=== PATIENT | male | born 1950 | race Caucasian/White ===

== ENCOUNTER → 2016-10-02 | Outpatient (CLI) | payer BC ==
--- NOTE | 2016-10-02 10:32 | DX ---
Chest, PA and lateral HISTORY: Dyspnea x2 months COMPARISON: None FINDINGS: There is cardiomegaly with a prominent left ventricular contour suggesting left ventricular enlargement. The pulmonary vascularity is normal. There is no pulmonary edema or pleural fluid. Ther e is mild tortuosity of the descending thoracic aorta. There is no evidence for pneumonia, mass or ad enopathy. There is an old mild T8 compression deformity. There is degenerative spurring scattered thr oughout the mid thoracic spine. IMPRESSION: Cardiomegaly with a prominent left ventricle. Is this patient hypertensive? Echocardiogra phy may be helpful. Results called to Dr. Silvio Benito.
== END ==
LOC: BMCIMAGING 10:07
PROVIDERS: ATTEND Internal Medicine
DX: R06.09 Other forms of dyspnea (principal); I51.7 Cardiomegaly

== ENCOUNTER 2017-08-13 14:41 | Emergency (ER) | payer BC ==
[2017-08-13 14:53] VITALS: RESP 18
--- NOTE | 2017-08-13 15:28 | EDPHY ---
HPI/HX/ROS/PE/MDM - Data Points Imaging: Discussed imaging studies w/ on call Radiologist, I viewed and interpreted images myself Narrative: CHIEF COMPLAINT: HISTORY OF PRESENT ILLNESS: The patient is a 66 y/o male arriving via EMS in a c-collar after striking his face after tripping while intoxicated this afternoon. He describes walking home on the sidewalk when he tripped and struck the right side of his face. He caught part of his fall with both hands. He denies any preceding symptoms including lightheadedness, chest pain, or shortness of breath. He did not lose consciousness and denies weakness, paresthesias, midline spinal pain, vomiting, vision changes, pleuritic pain, difficulty walking, headache, dental or jaw trama, or any other complaints. No anticoagulants. No fever, chills, chest pain, shortness of breath, palpitations, vomiting, diarrhea, urinary complaints, headache, lightheadedness. REVIEW OF SYSTEMS: Aside from elements discussed in the HPI, a comprehensive 10-point review of systems was reviewed and is negative. PAST MEDICAL HISTORY: Hypertension. Vaccinations up-to-date. SOCIAL HISTORY: Drinks alcohol daily. Employed. Lives in [place]. VITAL SIGNS: Reviewed by me GENERAL: Well-developed, well-nourished, resting comfortably in no respiratory distress. HEENT: Abrasion right forehead, abrasion above right lip, superficial laceration and abrasion right nares, swelling and abrasion over right cheek. Eyes: No icterus, no injection. Nystagmus with extraocular movements. Mouth: moist mucous membranes. Normal occlusion, edema and laceration to right lower lip with intraoral abrasions. Small laceration upper right lip at corner of mouth. Neck: C-collar in place, no tenderness. LUNGS: Clear to auscultation bilaterally, no wheezes, rhonchi or rales. CARDIAC: Regular rate and rhythm, no rubs, murmurs or gallops. ABDOMEN: Soft, nontender, nondistended, bowel sounds normal. BACK: No CVA tenderness. No C/T/L/S tenderness. EXTREMITIES: Abrasions to right hand, left thumb, and right knee. Trace edema bilateral legs. Range of motion is normal throughout. NEURO: Alert and oriented, grossly nonfocal. Movement in all extremities. SKIN: Warm and dry, no rash. PSYCHIATRIC: Normal mentation, no agitation. Portions of this note were transcribed by a biomedical electronics technician. I personally performed a history, physical exam, medical decision making, and confirmed accuracy of information the transcribed note. (Nia Brady) ED Course: This is a 66 y/o male with a history of alcohol abuse who presents with right facial injuries secondary to a trip and fall while intoxicated this afternoon. There is no evidence by history of preceding medical cause for fall aside from intoxication. He has superficial abrasion and laceration to the right side of his face as well as minor abrasions to both hands. His neuro exam is normal and there is no C/T/L/S tenderness on exam. Plan for head, neck, and face CTs. Breath alcohol is 266. CTs are all negative per radiology. Laceration will be repaired by LYLE Renner. Patient's cervical spine was removed following the CT scan which was negative. Patient continues to have no tenderness on examination. No fractures or other acute findings on the CT scan of his head, cervical spine, maxillofacial bones. Wounds were cared for and laceration was repaired. Patient was ambulatory from the emergency department. (Nia Brady) MDM: My involvement of the care this patient is solely for the procedure. Please see the note of the attending physician for all other aspects of care. PROCEDURE: Laceration repair Consent: Verbal Location: Right nose, just outside the nare Length of repair: 1 cm Complexity: Simple Layer involvement: Single Anesthesia: 1% lidocaine plain. 2 mL Irrigation: Extensive Debridement: None Procedure description: Following good anesthesia, the wound was copiously irrigated. Wound bed was explored with a sterile glove, and there is no foreign body noted. Wound borders were approximated well with good hemostasis. Tolerated well without complication. Suture/Staple material: Dermabond skin adhesive Wound care: Routine as discussed Suture/Staple removal: None (Italo Renner) Differential diagnosis of this patient's fall was considered including but not limited to intracranial injury, spinal injury, facial injury, laceration, abrasions, contusions. Cause of the fall was felt to be related to mechanical fall in the setting of alcohol intoxication. (Nia Brady) - Data Points Imaging Results: Imaging Impressions Cervical Spine CT 08/13/17 15:34 Impression: No fracture or evidence of ligamentous injury. Mild degenerative cervical spine disease, most severe at C5-C6 and C6-C7. Findings and recommendations discussed with Dr. Nia Brady at 1609 hours on August 13, 2017. Final report concurs with initial preliminary interpretation. Head CT 08/13/17 15:34 Impression: Atrophy and microvascular ischemic disease. Nothing acute intracranially. Findings and recommendations discussed with Dr. Nia Brady at 1609 hours on August 13, 2017. Final report concurs with initial preliminary interpretation. Face CT 08/13/17 15:35 Impression: 1. Right cheek hematoma and bruising. 2. No underlying fracture. Findings and recommendations discussed with Dr. Nia Brady at 1614 hours on August 13, 2017. Final report concurs with initial preliminary interpretation. General Time Seen by Provider: 08/13/17 15:18 Initial Vital Signs: Initial Vital Signs Temperature (C) 36.8 C 08/13/17 14:51 Heart Rate 111 H 08/13/17 14:51 Respiratory Rate 18 08/13/17 14:51 Blood Pressure 149/103 H 08/13/17 14:51 O2 Sat (%) 94 08/13/17 14:51 O2 Delivery Mode Room Air Allergies/Adverse Reactions: No Known Allergies Allergy (Unverified 08/13/17 15:40) Departure - Departure Disposition: Home, Routine, Self-Care Clinical Impression: Alcohol intoxication Qualifiers: Complication of substance-induced condition: uncomplicated Qualified Code(s): F10.920 - Alcohol use, unspecified with intoxication, uncomplicated Facial abrasion Qualifiers: Encounter type: initial encounter Qualified Code(s): S00.81XA - Abrasion of other part of head, initial encounter Lip laceration Qualifiers: Encounter type: initial encounter Qualified Code(s): S01.511A - Laceration without foreign body of lip, initial encounter Condition: Good Instructions: Laceration (ED), Alcohol Intoxication (ED), Abuse of Alcohol (ED) , Abrasion (ED), Acute Wounds (ED) Additional Instructions: 1. Do not scrub glue off laceration. It will fall off over time. Okay to gently clean area with soap and water. 2. Use Tylenol as directed on the packaging as needed for pain over the next few days. 3. Apply ice to sore areas intermittent for the next 24-48 hours. 4. Follow up with your primary care provider for any unimproved symptoms over the next few days. 5. Return to the ED for severe headache, weakness or numbness on one side of your body, vision changes, fever, signs of infection around your wounds, or other worsening of condition. Referrals: Patient,NotPresent [Unknown] - As per Instructions Naya Aburto MD [Medical Doctor] - As per Instructions Report Scribed for: Nia Brady Report Scribed by: Dorothy Warren Date of Report: 08/13/17 Time of Report: 15:28
[2017-08-13] MEDS ORDERED: SKIN ADHESIVE (DERMABOND) 1 EACH TP ONE (17:05)
[2017-08-13 17:27] VITALS: BP 142/86; PULSE 105; TEMP 98.6; O2SAT 92
== END 2017-08-13 17:28 | disposition home or self-care (01) ==
LOC: EDUNIT# → EDBD
PROC: 09QKXZZ Repair Nasal Mucosa and Soft Tissue, External Approach (ICD-10-PCS; principal; 2017-08-13)
DX: S01.511A Laceration without foreign body of lip, initial encounter (principal); F10.920 Alcohol use, unspecified with intoxication, uncomplicated; I10 Essential (primary) hypertension; W01.198A Fall on same level from slipping, tripping and stumbling with subsequent striking against other object, initial encounter; Y92.480 Sidewalk as the place of occurrence of the external cause; Y93.01 Activity, walking, marching and hiking

== ENCOUNTER → 2017-11-07 | Outpatient (CLI) | payer BC | LOC: BMCIMAGING 12:23 | PROVIDERS: ATTEND Internal Medicine | DX: M25.521 Pain in right elbow (principal) ==

== ENCOUNTER 2017-12-23 16:10 | Emergency (ER) | payer BC ==
[2017-12-23] MEDS ORDERED: LORazepam 1 MG TAB PO PRN (16:19)
[2017-12-23] MEDS ORDERED: LORazepam 2 MG/ML INJ IVP PRN (16:19)
--- NOTE | 2017-12-23 16:23 | EDPHY ---
H & P - Medical/Surgical History Hx Asthma: No Hx Chronic Respiratory Disease: No Hx Diabetes: No Hx Cardiac Disease: No Hx Renal Disease: No Hx Cirrhosis: No Hx Alcoholism: Yes Hx HIV/AIDS: No Hx Splenectomy or Spleen Trauma: No Other PMH: hypertension - Social History Smoking Status: Never smoked Time Seen by Provider: 12/23/17 16:11 HPI/ROS: CHIEF COMPLAINT: "I think I'm withdrawing" HISTORY OF PRESENT ILLNESS: 67-year-old male history of daily alcohol use, 3/4 to 1 L of vodka per day, arrives via ambulance after he asked to secondary to call 911 because of increasing tremors and anxiety. Today is Saturday. States that over the weekend he drank more than usual "I was bingeing". No hallucination. No seizure. No suicidal or homicidal ideation. No chest pain. No dyspnea. No headache. No gait instability. PRIMARY CARE PROVIDER:Dr. Devyn Benito REVIEW OF SYSTEMS: A ten point review of systems was performed and is negative with the exception of the items mentioned in the HPI PAST MEDICAL & SURGICAL HISTORY: History of hypertension SOCIAL HISTORY: Last drink of alcohol 5:00 p.m. Yesterday PHYSICAL EXAM (Prior to examination, patient consented to physical exam, hands were washed and my usual and customary physical exam procedures followed) 1) GENERAL: Well-developed, well-nourished, alert and oriented. Appears anxious. 2) HEAD: Normocephalic, atraumatic 3) HEENT: Pupils equal, round, reactive to light bilaterally. Sclera anicteric. 4) NECK: Full range of motion, no meningeal signs. 5) LUNGS: Clear auscultation bilaterally, no wheezes, no rhonchi, no retractions. 6) HEART: Regular rate and rhythm, no murmur, no heave, no gallop. 7) ABDOMEN: No guarding, no rebound, no focal tenderness, 8) MUSCULOSKELETAL: Moving all extremities, no focal areas of tenderness, no obvious trauma. No peripheral edema or discoloration. 9) BACK: No CVA tenderness, no midline vertebral tenderness, no fluctuance, no step-off, no obvious trauma, no visual or palpable abnormality. 10) SKIN: No rash, no petechiae. 11) Psychiatric: Patient is oriented X 3, there is no agitation. Tremulous. 12) NEURO: Awake, alert, and oriented to person, place and time. Answers questions appropriately. There were no obvious focal neurologic abnormalities. No cerebellar dysfunction. Cranial nerves 2 through to 12 intact. Normal steady gait. Upper and lower extremities bilaterally with strength 5 / 5, reflexes 2+. DIFFERENTIAL DIAGNOSIS: In no particular order include but limited to delirium tremens, acute alcohol withdrawal, depression (Tangela Shabazz) Constitutional: Initial Vital Signs Temperature (C) 36.4 C 12/23/17 16:17 Heart Rate 106 H 12/23/17 16:17 Respiratory Rate 18 12/23/17 16:17 Blood Pressure 160/107 H 12/23/17 16:17 O2 Sat (%) 96 12/23/17 16:17 O2 Delivery Mode Room Air Allergies/Adverse Reactions: No Known Allergies Allergy (Unverified 08/13/17 15:40) Home Medications: Medication Instructions Recorded Htn Med 12/23/17 Medical Decision Making ED Course/Re-evaluation: 4:19 p.m.: t this time he denies suicidal homicidal ideations. I doubt delirium tremens. Will re-evaluate the patient,CIWA protocol initiated on this patient. Care of patient under supervision of secondary Supervising physician Dr George. 6:50 p.m.: Re-evaluation after 2 mg of IV Ativan IV fluids. He is feeling improvement. Tremors have resolved. Denies suicidal or homicidal ideation. Denies hallucination. He would like to be discharged. Have offered [facility] which he [facility]. We discussed the risks of sudden cessation of alcohol including but not limited to seizure, delirium tremens, . We discussed his current vital signs, he is hypertensive. He would like to be discharged. Doubt hypertensive crisis. He is answering questions appropriately and would like to be discharged. (Tangela Shabazz) The patient was evaluated and managed by the physician clinical assistant professor. I have reviewed this chart and I agree with the findings and plan of care as documented , as indicated by my signature. I am the secondary supervising physician. ( Erin George) - Data Points Medications Given: Discontinued Medications Lorazepam (Ativan Injection) 0 mg IVP Q1H PRN; Protocol PRN Reason: Alcohol Withdrawal w/IV access Stop: 12/24/17 04:19 Last Admin: 12/23/17 16:28 Dose: 2 mg Departure - Departure Disposition: Home, Routine, Self-Care Clinical Impression: Alcohol withdrawal Condition: Good Instructions: Alcohol Withdrawal (ED) Additional Instructions: You have been offered referral [facility] which have declined. Stopping chronic alcohol use suddenly can be dangerous and sometimes deadly. Referrals: Devyn Benito MD [Primary Care Provider] - As per Instructions
[2017-12-23 19:34] VITALS: BP 158/106
== END 2017-12-23 19:25 | disposition home or self-care (01) ==
LOC: EDUNIT#
DX: F10.239 Alcohol dependence with withdrawal, unspecified (principal); I10 Essential (primary) hypertension
CPT/HCPCS: 96374; J2060

== ENCOUNTER → 2019-03-10 | Outpatient (CLI) | payer BC | LOC: FIMAGING 14:58 ==